=== PATIENT | female | born 1965 | race Caucasian/White ===

== ENCOUNTER 2022-01-29 18:25 | Emergency (ER) | payer MEDICARE, SELFPAY ==
[2022-01-29 18:36] VITALS: BP 144/85; PULSE 110; RESP 18; TEMP 37; O2SAT 96; BMI 50.1
== END 2022-01-29 20:37 | disposition left against medical advice (07) ==
PROVIDERS: Emergency Provider Emergency Medicine; PCP Internal Medicine
DX: S81.852A Open bite, left lower leg, initial encounter (principal); W54.0XXA Bitten by dog, initial encounter; Y93.9 Activity, unspecified; Y92.9 Unspecified place or not applicable; Y99.9 Unspecified external cause status

== ENCOUNTER 2022-01-30 09:05 | Emergency (ER) | payer MEDICARE, SELFPAY ==
[2022-01-30 09:31] VITALS: BP 118/86; PULSE 98; RESP 16; TEMP 35.9; BMI 45.4
--- NOTE | 2022-01-30 11:35 | ED.ANIMALBIT ---
HPI - Animal Bite General Chief Complaint: Animal Bite Stated Complaint: dog bite Time Seen by Provider: 01/30/22 11:34 Source: patient and family Mode of arrival: ambulatory Limitations: no limitations History of Present Illness HPI narrative: Patient comes to the emergency room accompanied by her brother. Patient states that she was bitten by her small dog more than 24 hours ago. Patient has a laceration to the left calf. Patient states that the 2 dogs were getting into a fight, patient was in between. Patient has been applying antibiotic to the wound site. Patient denies fever chills. Patient does not know when her last tetanus shot was. Related Data Previous Rx's Medication Instructions Recorded amoxicillin 500 mg-potassium 1 tab PO BID #14 tab 01/30/22 clavulanate 125 mg tablet (Augmentin) Allergies Allergy/AdvReac Type Severity Reaction Status Date / Time No Known Allergies Allergy Verified 01/29/22 18:38 Review of Systems Review of Systems: Constitutional : No Weight loss, No Fever, No Chills, No Night Sweats, No Fatigue, No Malaise ENT/Mouth : No Hearing loss, No Ear Pain, No Nasal Congestion, No Sinus Pain, No Hoarseness, No sore throat, No Rhinorrhea, No Swallowing Difficulty Eyes: No Eye Pain, No Swelling, No Redness, No Foreign Body, No Discharge, No Vision Changes Cardiovascular : No Chest Pain, No SOB, No Dyspnea on Exertion, No Orthopnea, No Edema, No Palpitations Respiratory : No Cough, No Sputum, No Wheezing, No Smoke Exposure, No Dyspnea Gastrointestinal : No Nausea, No Vomiting, No Diarrhea, No Constipation, No abdominal Pain, No Hematochezia, No Melena Genitourinary : no irregular bleeding, No Dysuria, No Urinary Frequency, No Hematuria, No Urinary Incontinence, No Urgency, No Flank Pain, No Urinary Flow Changes, No Hesitancy Musculoskeletal : No joint pain, No Myalgias, No Joint Swelling Skin : Dog bites, laceration to the left calf Neuro : No Weakness, No Numbness, No Paresthesias, No Loss of Consciousness, No Dizziness, No Headache Psych : No Anxiety/Panic, No Depression, No SI/HI/AH/VH, No Social Issues, Heme/Lymph: No Bruising, No Bleeding,No Lymphadenopathy Endocrine : No Polyuria, No Polydipsia, No Temperature Intolerance [facility] Past Medical History Medical History (Updated 01/30/22 @ 11:38 by Tayler Thompson MD) Diabetes Social History Social History Advance Directives: No Advance Directives Information Provided: No Physical Exam ED Vital Signs: Vital Signs - 24 hr 01/30/22 09:31 Temperature 96.7 F L Pulse Rate 98 Respiratory Rate 16 Blood Pressure 118/86 BMI result Body Mass Index 45.4 Const Other: Appearance: Alert. Oriented X3. No acute distress. Eyes: Pupils equal, round and reactive to light. ENT: Pharynx normal. Neck: Normal inspection. Neck supple. No lymph nodes noted. No crepitus CVS: Normal heart rate and rhythm. Pulses normal. Normal S1 and S2 Respiratory: No respiratory distress. Breath sounds normal. No Wheezing. No rales Abdomen: Soft and nontender. No rigidity. No distention. Skin: Patient has a 1.5 cm laceration to the left calf. Looks clean, no surrounding cellulitis Extremities: No lower extremity edema. No Lacerations. No Rash Neuro: Oriented X 3. No motor deficit. No sensory deficit. Moving all extremities. No slurred speech. CN 2 through 12 grossly intact Psych: calm, cooperative, normal affect Course Course Course Narrative: I discussed with the patient that it has been over 24 hours since she was bitten by dog, additionally, since this is a contaminated wound, stitches are not recommended. The wound itself is mild. Patient was giving a prescription for Augmentin and also was given a Tdap booster Discharge Plan Discharge Clinical Impression: Dog bite Patient Disposition: Home, Self-Care Instructions: Animal Bite (ED) Additional Instructions: Please follow-up with your primary care physician tomorrow. If you have any worsening or new symptoms, please return to the emergency room or call 911 Prescriptions: New amoxicillin-pot clavulanate [Augmentin] 500-125 mg tablet 1 tab PO BID Qty: 14 0RF
[2022-01-30] MEDS: Diphth,Pertus(ACell),Tet Adult 0.5 ML SYRINGE IM (11:44)
== END 2022-01-30 11:48 | disposition home or self-care (01) ==
PROVIDERS: Emergency Provider Emergency Medicine; PCP Internal Medicine
DX: S80.872A Other superficial bite, left lower leg, initial encounter (principal); S80.812A Abrasion, left lower leg, initial encounter; M79.605 Pain in left leg; W54.0XXA Bitten by dog, initial encounter; Y93.9 Activity, unspecified; Y92.9 Unspecified place or not applicable; Y99.9 Unspecified external cause status
CPT/HCPCS: 90471; 90715; 99284

== ENCOUNTER 2022-09-19 12:19 | Emergency (ER) | payer MEDICARE, SELFPAY ==
--- NOTE | ~2022-09-19 | XR_ITS ---
EXAMINATION: XR CHEST CLINICAL INFORMATION: Cough COMPARISON: None TECHNIQUE: Frontal view of the chest was obtained. FINDINGS: Lungs are well-inflated and clear. Trachea is midline in position. No interstitial disease, consolidation or mass. No pleural effusion or pneumothorax. Cardiac silhouette and pulmonary vessels are normal in size. The mediastinum and loi have normal contour. Multilevel osteophyte formation of the thoracic spine. XR/XR chest 1V IMPRESSION: No acute cardiopulmonary abnormality. No radiographic evidence of pneumonia.
--- NOTE | 2022-09-19 12:46 | ED_ITS ---
HPI - URI/Sore Throat General Chief Complaint: Upper Respiratory Symptoms <MINERVA Welch - Last Filed: 09/19/22 12:50> Stated Complaint: Cough/Ear pain <MINERVA Welch - Last Filed: 09/19/22 12:50> Time Seen by Provider: 09/19/22 14:25 <MINERVA Welch Last Filed: 09/19/22 12:50> Source: patient <Chelo Jung CNP - Last Filed: 09/19/22 15:19> Mode of arrival: ambulatory <Chelo Jung CNP - Last Filed: 09/19/22 15:19> Limitations: no limitations <Chelo Jung CNP - Last Filed: 09/19/22 15:19> History of Present Illness HPI Narrative: Patient is a 57-year-old female who presents emergency department for evaluation of bilateral ear pain, productive cough with increased phlegm from baseline, congestion, fatigue, hoarse voice and myalgias. Symptom onset was 9 days ago. She reports her brother and [id number] to be ill with similar symptoms. She took an at home COVID-19 test which was negative today. She reports a history of COPD, however she is not currently on any inhalers, history of tobacco usage with cessation in 2007. Denies fevers, chills, sore throat, chest pain, shortness of breath, difficulty breathing, numbness or tingling of her extremities. <Cehlo Jung CNP - Last Filed: 09/19/22 15:19> Related Data Home Medications: Previous Rx's Medication Instructions Recorded amoxicillin 500 mg-potassium 1 tab PO BID #14 tabs 01/30/22 clavulanate 125 mg tablet (Augmentin) azithromycin 250 mg tablet See Rx Instructions PO .COMPLEX #6 09/19/22 tabs benzonatate 100 mg capsule 100 mg PO BID PRN cough #14 caps 09/19/22 <MINERVA Welch Last Filed: 09/19/22 12:50> Allergies/Adverse Reactions: Allergies Allergy/AdvReac Type Severity Reaction Status Date / Time No Known Allergies Allergy Verified 01/29/22 18:38 <MINERVA Welch Last Filed: 09/19/22 12:50> Review of Systems Review of Systems: Constitutional: No fever. No chills. No weakness. Positive fatigue. ENT/ Mouth: Positive Ear Pain, positive Nasal Congestion, no sore throat, No Rhinorrhea, No Swallowing Difficulty. Positive hoarse voice Skin: No rash or itching. Cardiovascular: No chest pain. No palpitations. Respiratory: No shortness of breath. Positive cough. Positive sputum production. Gastrointestinal: No nausea. No vomiting. No diarrhea. No abdominal pain. Genitourinary: No burning micturition. No urinary frequency. Neurologic: No headache. No dizziness. No syncope. No numbness or tingling in the extremities. Musculoskeletal: No muscle pain. No back pain. No joint pain or stiffness. <Chelo Jung CNP - Last Filed: 09/19/22 15:19> Yes all other systems are reviewed and are negative <Chelo Jung CNP - Last Filed: 09/19/22 15:19> PMFSH Past Medical History Attestation statement: The following information was validated with the patient. <Chelo Jung CNP - Last Filed: 09/19/22 15:19> Source: old records reviewed <Chelo Jung CNP - Last Filed: 09/19/22 15:19> Medical History: Medical History Diabetes <MINERVA Welch - Last Filed: 09/19/22 12:50> Social History Social History: Social History Alcohol intake: current Alcohol intake frequency: holidays/special occasions only Smoked in Last 30 Days: No Use of substances other than those prescribed or required for medical reasons: No Advance Directives: Yes Advance Directives Information Provided: Yes Advance Directives on File: No Patient : No <MINERVA Welch - Last Filed: 09/19/22 12:50> Physical Exam Vital Signs: Vital Signs: Last Vital Signs Temp 97.4 F 09/19/22 12:47 Pulse 100 09/19/22 14:28 Resp 16 09/19/22 14:28 BP 140/83 H 09/19/22 14:28 Pulse Ox 96 09/19/22 14:28 O2 Del Method 09/19/22 14:28 BMI result Body Mass Index 48.2 <MINERVA Welch - Last Filed: 09/19/22 12:50> Vital Signs: Last Vital Signs Temp 97.4 F 09/19/22 12:47 Pulse 100 09/19/22 14:28 Resp 16 09/19/22 14:28 BP 140/83 H 09/19/22 14:28 Pulse Ox 96 09/19/22 14:28 O2 Del Method 09/19/22 14:28 BMI result Body Mass Index 48.2 <Chelo Jung CNP - Last Filed: 09/19/22 15:19> Appearance: Alert.?Oriented to person, place and time. No acute dis tress.?Normal affect. Eyes: Pupils equal, round and reactive to light.? ENT: TM normal bilaterally. Pharynx normal.?? Neck: Normal inspection.? Neck supple.??No cervical adenopathy CVS: Heart sounds normal. Normal heart rate and rhythm.? Pulses normal.?? Respiratory: No respiratory distress.? Lung sounds clear to auscultation bilaterally?? Abdomen: Soft and non-tender. Normoactive bowel sounds. Skin: Skin warm and dry.? Normal skin color.? ? Extremities: No lower extremity edema.? Neuro: Moves all extremities spontaneously. Sensation intact bilaterally. No motor deficits. Ambulates with normal steady gait. <Chelo Jung CNP - Last Filed: 09/19/22 15:19> Course Course Course Narrative: RME--57yo F w/PMHx DM c/o bilateral ear pain, cough, congestion, generalized fatigue, myalgias since . TMs WNL, hoarse voice noted on exam, Uvula midline, talking in complete sentences. Concern for viral illness CXR, COVID/flu/RSV, strep and Tessalon pearls/motrin ordered in triage <MINERVA Welch - Last Filed: 09/19/22 12:50> Medications Administered Discontinued Medications Generic Name Dose Route Start Last Admin Trade Name Freq PRN Reason Stop Dose Admin Benzonatate 100 mg 09/19/22 12:46 09/19/22 15:02 Benzonatate 100 Mg Capsule PO 09/19/22 12:47 100 mg ONCE ONE Administration Ibuprofen 400 mg 09/19/22 12:46 09/19/22 15:02 Ibuprofen 400 Mg Tablet PO 09/19/22 12:47 400 mg ONCE ONE Administration <MINERVA Welch - Last Filed: 09/19/22 12:50> Medications Administered Discontinued Medications Generic Name Dose Route Start Last Admin Trade Name Melissa PRN Reason Stop Dose Admin Benzonatate 100 mg 09/19/22 12:46 09/19/22 15:02 Benzonatate 100 Mg Capsule PO 09/19/22 12:47 100 mg ONCE ONE Administration Ibuprofen 400 mg 09/19/22 12:46 09/19/22 15:02 Ibuprofen 400 Mg Tablet PO 09/19/22 12:47 400 mg ONCE ONE Administration <Chelo Jung CNP - Last Filed: 09/19/22 15:19> Medical Decision Making Medical Decision Making MDM Narrative: Patient is a 57-year-old female with reported past medical history of diabetes and COPD not currently prescribed any inhalers. Presenting to emergency department for evaluation of upper respiratory symptoms. At the time physical examination she is not in distress, lung sounds are clear. She does express myalgias, is noted to be mildly tachycardic, heart rate 100. Denies history of DVT/PE, malignancy, oral contraceptive usage, recent prolonged immobilization, remote history of tobacco usage. PERC negative low suspicion for pulmonary embolism. COVID-19 testing today is positive, with symptom onset greater than 5 days, would not be candidate for Paxlovid. Lung sounds are clear to apices. Chest x-ray does not appear consistent with pneumonia. Strep testing is negative, oropharynx within normal limits, hoarseness of the voice is noted, which appears consistent with laryngitis due to viral illness. Discussed conservative treatment, rest, hydration, prescription for benzonatate to be sent to patient's pharmacy. Given reported history of COPD, will also provide prescription for azithromycin. Discussed worrisome signs and symptoms that would warrant re-evaluation in the emergency department, otherwise advised outpatient follow-up with her primary care provider. Patient verbalized understanding. She is stable for discharge. <Chelo Jung CNP - Last Filed: 09/19/22 15:19> Differential Diagnosis Differential Diagnoses: The differential diagnosis associated with the presentation includes (As noted above) <Chelo Jung CNP - Last Filed: 09/19/22 15:19> Lab Data MDM Lab Attestation statement: I reviewed the patient's lab results. <Chelo Jung CNP - Last Filed: 09/19/22 15:19> Labs: Lab Results 09/19/22 09/19/22 Range/Units 12:55 12:55 Influenza Type A (PCR) NEGATIVE (Negative) Influenza Type B (PCR) NEGATIVE (Negative) RSV RNA Qual (PCR) NEGATIVE (Negative) SARS-CoV-2 RNA (RT-PCR) POSITIVE A (Negative) S. pyogenes GrpA PREMA Negative (Negative) <MINERVA Welch - Last Filed: 09/19/22 12:50> Lab Results 09/19/22 09/19/22 Range/Units 12:55 12:55 Influenza Type A (PCR) NEGATIVE (Negative) Influenza Type B (PCR) NEGATIVE (Negative) RSV RNA Qual (PCR) NEGATIVE (Negative) SARS-CoV-2 RNA (RT-PCR) POSITIVE A (Negative) S. pyogenes GrpA RPEMA Negative (Negative) <Chelo Jung CNP - Last Filed: 09/19/22 15:19> Independent Interpretation I performed an independent interpretation of an: Plain X-Ray <Chelo Jung CNP - Last Filed: 09/19/22 15:19> Interpretation: I have personally interpreted chest x-ray and agree with radiologist impression <Chelo Jung CNP - Last Filed: 09/19/22 15:19> Radiology Impression Discussion of test interpretation with radiology: I have reviewed the radiologist's reading. <Chelo Jung CNP - Last Filed: 09/19/22 15:19> Independent Historian Clinical information obtained from an independent historian. History obtained from or confirmed by: Other (History confirmed by brother who is present in the room.) <Chelo Jung CNP - Last Filed: 09/19/22 15:19> Prescription Management I considered prescription management with: Antiviral (Outside of treatment window for Paxlovid) and Antibiotic (Prescription for azithromycin sent to patient's pharmacy) <Chelo Jung CNP - Last Filed: 09/19/22 15:19> Chronic Conditions Patient?s care impacted by: Diabetes and Other (COPD) <Chelo Jung CNP - Last Filed: 09/19/22 15:19> Discharge Plan Discharge Clinical Impression: COVID-19, Bronchitis <MINERVA Welch - Last Filed: 09/19/22 12:50> Patient Disposition: Home, Self-Care <MINERVA Welch - Last Filed: 09/19/22 12:50> Additional Instructions: As we discussed, CDC recommendations for isolation/quarantine are 5 days from symptom onset or positive testing. Given you have been ill for greater than 5 days. You may end isolation when you are feeling better, and without a fever for 24 hour period. Prescription was sent to your pharmacy for Dara Muñoz in addition to azithromycin, please complete this entire course of antibiotic. Follow-up with your primary care provider as needed for persistent symptoms Return to emergency department with any new or worsening symptoms or concerns. <MINERVA Welch - Last Filed: 09/19/22 12:50> Prescriptions: New benzonatate 100 mg capsule 100 mg PO BID PRN (Reason: cough) Qty: 14 0RF azithromycin 250 mg tablet See Rx Instructions .ROUTE .COMPLEX Qty: 6 0RF Rx Instructions: For 250 mg dose pack: take 500 mg today (day 1), then 250 mg for 4 days (days 2-5) No Action amoxicillin-pot clavulanate [Augmentin] 500-125 mg tablet 1 tab PO BID Qty: 14 0RF <MINERVA Welch - Last Filed: 09/19/22 12:50> Referrals: Physician,Unknown J [Primary Care Provider] - <MINERVA Welch - Last Filed: 09/19/22 12:50>
[2022-09-19 12:47] VITALS: BP 132/93; PULSE 107; RESP 20; TEMP 36.3; O2SAT 97; BMI 48.2
[2022-09-19 13:25] LABS: IDNOW Serial# 6674DD1D; Strep A Nucleic Acid Negative (Negative)
[2022-09-19 13:49] LABS: Influenza A PCR NEGATIVE (Negative); Influenza B PCR NEGATIVE (Negative); Resp Syncy Virus RNA Qual PCR NEGATIVE (Negative); SARS COV2 PCR INHOUSE POSITIVE (Negative)
[2022-09-19 14:28] VITALS: BP 140/83; PULSE 100; RESP 16; O2SAT 96
[2022-09-19] MEDS: Benzonatate 100 MG CAPSULE PO (15:02)
[2022-09-19] MEDS: Ibuprofen 400 MG TABLET PO (15:02)
--- NOTE | 2022-09-19 15:04 | PC.NURSE ---
patient a&ox3, medicated for cough, pt denies pain/discomfort, call thomson within reach, will continue to monitor
== END 2022-09-19 15:34 | disposition home or self-care (01) ==
PROVIDERS: Physician Assistant; Emergency Provider Emergency Medicine
DX: U07.1 COVID-19 (principal); J40 Bronchitis, not specified as acute or chronic; E11.9 Type 2 diabetes mellitus without complications
CPT/HCPCS: 0241U; 36415; 71045; 87651; 99283; 99284